=== PATIENT | male | born 1945 | race Caucasian/White ===

== ENCOUNTER 2017-10-12 21:19 | Emergency (ER) | payer MEDICARE, OTHER ==
[2017-10-12] MEDS ORDERED: SODIUM CHLORIDE 0.9% 1,000 ML IV STA (21:29)
[2017-10-12 21:38] VITALS: RESP 16
[2017-10-12 21:52] LABS: Glucose,Whole Blood 255 mg/dL (75-99)
[2017-10-12] MEDS ORDERED: ACETAMINOPHEN IV (For NPO) 1,000 MG in EMPTY BAG 1 BAG IVPB STA (21:53)
[2017-10-12] MEDS ORDERED: KETOROLAC 30 MG/ML 1 ML VIAL IVP STA (21:53)
[2017-10-12 21:56] LABS: Basophils # (A) 0.1 k/uL (0-0.2); Basophils % (A) 1 %; Eosinophils # (A) 2.3 k/uL (0-0.7); Eosinophils % (A) 29 %; HCT 39.2 % (39.0-53.0); HGB 12.6 gm/dL (13.0-17.5); Lymphocytes # (A) 0.8 k/uL (1.0-4.8); Lymphocytes % (A) 10 %; MCH 26.4 pg (25.0-35.0); MCHC 32.2 g/dL (31.0-37.0); MCV 82.1 fL (80.0-100.0); Monocytes # (A) 0.5 k/uL (0-1.0); Monocytes % (A) 6 %; Neutrophils # (A) 4.2 k/uL (1.3-7.7); Neutrophils % (A) 51 %; Platelet Count 194 k/uL (150-450); RBC 4.77 m/uL (4.30-5.90); RDW 15.7 % (11.5-15.5); WBC 8.1 k/uL (3.8-10.6)
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
[2017-10-12 22:08] LABS: ALT 83 U/L (21-72); AST 75 U/L (17-59); Albumin 3.9 g/dL (3.5-5.0); Alkaline Phosphatase 345 U/L (38-126); Anion Gap 8 mmol/L; Blood Urea Nitrogen 17 mg/dL (9-20); Carbon Dioxide 25 mmol/L (22-30); Chloride 102 mmol/L (98-107); Glucose 253 mg/dL (74-99); Magnesium 2.1 mg/dL (1.6-2.3); Phosphorus 2.8 mg/dL (2.5-4.5); Potassium 4.4 mmol/L (3.5-5.1); Sodium 135 mmol/L (137-145); Total Bilirubin 0.6 mg/dL (0.2-1.3); Total Protein 7.1 g/dL (6.3-8.2)
[2017-10-12 22:10] LABS: Creatine Kinase 31 U/L (55-170)
[2017-10-12 22:13] LABS: INR 1.6 (<1.2); Partial Thromboplastin Time 24.8 sec (22.0-30.0); Prothrombin Time 14.4 sec (9.0-12.0)
--- NOTE | 2017-10-12 22:18 | XR ---
EXAMINATION TYPE: XR chest 2V DATE OF EXAM: 10/12/2017 COMPARISON: 01/16/2012 HISTORY: Fatigue TECHNIQUE: Frontal and lateral views of the chest are obtained. FINDINGS: There is no heart failure nor confluent pneumonic infiltrate. Costophrenic angles are cornell r. There are chest leads. There is mild thoracic dextroscoliosis. IMPRESSION: No active cardiopulmonary disease. Normal heart. No change
[2017-10-12 22:23] LABS: Creatine Kinase MB 0.5 ng/mL (0.0-2.4); Troponin I <0.012 ng/mL (0.000-0.034)
[2017-10-12] MEDS ORDERED: diphenhydrAMINE 50 MG/ML 1 ML VIAL IVP STA (22:55)
[2017-10-12] MEDS ORDERED: methylPREDNISolone SOD SUCCI 125 MG/2 ML VIAL IV STA (22:55)
[2017-10-12] MEDS ORDERED: cefTRIAXone 2,000 MG in SODIUM CHLORIDE 0.9% 100 ML IVPB STA (22:55)
[2017-10-12] MEDS ORDERED: FAMOTIDINE 20 MG/2 ML VIAL IV STA (22:55)
[2017-10-12 23:02] VITALS: BP 120/60; PULSE 86; TEMP 99.8
[2017-10-12] MEDS ORDERED: cefTRIAXone IN SWFI 2,000 MG/20 ML SYRINGE IVP ONE (23:45)
== END 2017-10-12 23:41 | disposition left against medical advice (07) ==
LOC: EC 21:19
DX: R53.1 Weakness (principal); R50.9 Fever, unspecified; R21 Rash and other nonspecific skin eruption; Z04.1 Encounter for examination and observation following transport accident; Z87.891 Personal history of nicotine dependence
CPT/HCPCS: 99285; 82075; 36415; 80053; 82550; 82553; 83605; 83735; 84100; 84443; 84484; 85025; 85610; 85730; 71046; J0131

== ENCOUNTER → 2017-10-19 | Outpatient (CLI) | payer OTHER ==
--- NOTE | 2017-10-19 19:35 | NM ---
EXAMINATION TYPE: NM hepatobiliary w CCK DATE OF EXAM: 10/19/2017 COMPARISON: NONE HISTORY: Pain with clinical suspicion for dysfunctional gallbladder TECHNIQUE: After the intravenous administration of 4.83 mCi Tc 99m Mebrofenin hepatobiliary scintigra phy is performed. Immediate images post injection. FINDINGS: There is satisfactory initial accumulation of tracer by the liver. The gallbladder is visu alized within 35 minutes. The small bowel activity is noted within 10 minutes. At one hour CCK was administered, patient was injected with 1.89 mcg of Kinevac, and gallbladder ejec tion fraction is calculated at 69 %, in the normal range. Therefore there is no scintigraphic eviden ce of cystic or common bile duct obstruction to suggest acute cholecystitis or gallbladder dyskinesia . IMPRESSION: 1. Normal hepatobiliary transport and gallbladder ejection fraction. 2. However, reflux of bile into the stomach was noted, particularly prominent from 48 -60 minutes in to the study.
== END | disposition home or self-care (01) ==
LOC: RADNMMAIN 16:50
PROVIDERS: ATTEND Internal Medicine
DX: K82.8 Other specified diseases of gallbladder (principal)
CPT/HCPCS: 78227; A9537; J2805

== ENCOUNTER 2017-11-05 18:26 | Emergency (ER) | payer MEDICARE ==
[2017-11-05] MEDS ORDERED: SODIUM CHLORIDE 0.9% 500 ML 500 ML IV STA (18:33)
[2017-11-05 18:37] LABS: Glucose,Whole Blood 155 mg/dL (75-99)
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
[2017-11-05 18:58] LABS: Anisocytosis Slight; Basophils # (A) 0.1 k/uL (0-0.2); Basophils % (A) 1 %; Eosinophils # (A) 2.6 k/uL (0-0.7); Eosinophils % (A) 21 %; HCT 45.7 % (39.0-53.0); HGB 14.1 gm/dL (13.0-17.5); Hypochromasia Slight; Lymphocytes # (A) 1.7 k/uL (1.0-4.8); Lymphocytes % (A) 14 %; MCH 26.2 pg (25.0-35.0); MCHC 30.8 g/dL (31.0-37.0); MCV 85.1 fL (80.0-100.0); Mean Platelet Volume 6.7; Monocytes # (A) 0.5 k/uL (0-1.0); Monocytes % (A) 4 %; Neutrophils # (A) 7.6 k/uL (1.3-7.7); Neutrophils % (A) 60 %; Platelet Count 305 k/uL (150-450); RBC 5.37 m/uL (4.30-5.90); RDW 17.2 % (11.5-15.5); WBC 12.6 k/uL (3.8-10.6)
--- NOTE | 2017-11-05 18:58 | XR ---
EXAMINATION TYPE: XR pelvis AP view DATE OF EXAM: 11/05/2017 COMPARISON: NONE HISTORY: Trauma. Pain. TECHNIQUE: Single view FINDINGS: The pelvic ring is intact. Proximal femurs and hip joints are intact. IMPRESSION: Negative pelvis exam.
--- NOTE | 2017-11-05 19:05 | XR ---
EXAMINATION TYPE: XR chest 1V portable DATE OF EXAM: 11/05/2017 COMPARISON: 10/12/2017 HISTORY: Altered mental status TECHNIQUE: Single frontal view of the chest is obtained. FINDINGS: Heart is normal. Thoracic aorta is atheromatous. Lungs are clear of consolidation. There a re chest leads. There is some linear density behind the heart in the left lower lobe. IMPRESSION: There is probably some new minimal linear infiltrate and atelectasis in the left lower l obe compared to old exam. No heart failure.
[2017-11-05 19:06] LABS: INR 1.7 (<1.2); Partial Thromboplastin Time 25.7 sec (22.0-30.0); Prothrombin Time 15.5 sec (9.0-12.0)
[2017-11-05] MEDS ORDERED: LORazepam 2 MG/ML INJ IV STA (19:15)
[2017-11-05 19:17] LABS: ALT 44 U/L (21-72); AST 41 U/L (17-59); Albumin 3.3 g/dL (3.5-5.0); Alcohol <10 mg/dL; Alkaline Phosphatase 361 U/L (38-126); Amylase 58 U/L (30-110); Anion Gap 11 mmol/L; Blood Urea Nitrogen 14 mg/dL (9-20); Calcium 8.4 mg/dL (8.4-10.2); Carbon Dioxide 21 mmol/L (22-30); Chloride 103 mmol/L (98-107); Glucose 186 mg/dL (74-99); Lipase 113 U/L (23-300); Potassium 4.5 mmol/L (3.5-5.1); Sodium 135 mmol/L (137-145); Total Bilirubin 0.7 mg/dL (0.2-1.3); Total Protein 8.2 g/dL (6.3-8.2)
--- NOTE | 2017-11-05 19:24 | CT ---
EXAMINATION TYPE: CT brain rafael angulo DATE OF EXAM: 11/05/2017 COMPARISON: 01/12/2012 HISTORY: Fall, altered mental status CT DLP: 1813.6 mGycm Automated exposure control for dose reduction was used. TECHNIQUE: CT scan of the head and cervical spine are performed without contrast. FINDINGS: There is cerebral cortical atrophy. There is no mass effect nor midline shift. There is n o sign of intracranial hemorrhage. The calvarium is intact. There is 8 mm nondisplaced chip fracture of the anterior large hypertrophic osteophyte at the C3 vert ebral body. It is not clear if this fracture is acute. The facet joints appear intact. Skull base is intact. There is degenerative disc space narrowing from C3 to C7 with spurring of the endplates. IMPRESSION: Cerebral atrophy. No acute intracranial abnormality. No change. Chip fracture of the anterior inferior endplate osteophyte at C3 level. This could be an acute fractu re. No evidence of cervical spine instability. Moderate multilevel spondylosis.
[2017-11-05 19:42] LABS: Glucose,Whole Blood 168 mg/dL (75-99)
[2017-11-05 19:44] LABS: Creatine Kinase MB 5.7 ng/mL (0.0-2.4); Troponin I 0.068 ng/mL (0.000-0.034)
[2017-11-05] MEDS ORDERED: SODIUM CHLORIDE 0.9% 500 ML 500 ML IV ONE (19:54)
--- NOTE | 2017-11-05 20:03 | CT ---
EXAMINATION TYPE: CT angio head neck DATE OF EXAM: 11/05/2017 HISTORY: Leaning towards left side COMPARISON: CT DLP: 742 mGycm. Automated Exposure Control for Dose Reduction was Utilized. TECHNIQUE: CTA scan of the neck is performed with IV Contrast, patient injected with 65 mL of Isovue 370, axial images are obtained, coronal and sagittal reformatted images are reviewed. Three-D recons tructed images are created on an independent workstation and reviewed. FINDINGS: There is normal branching pattern of the great vessels on the aortic arch. B left carotid artery has origin from the innominate artery. There is bilateral arterial flow in the vertebral arteries which a ppear fairly symmetric. There is bilateral contrast opacification of the common internal and external carotid arteries. There is no evidence of carotid or vertebral artery aneurysm or dissection. There is normal contrast opacification of the vertebrobasilar artery system. There is arterial flow i n the anterior middle and posterior cerebral arteries. There is suboptimal contrast density in the ar teries. This is probably due to timing. I see no evidence of intracranial aneurysm or neovascularity. There is no mass effect. There is normal contrast opacification of the venous sinuses. IMPRESSION: Negative CT angiogram of the head and neck. No evidence of arterial stenosis.
[2017-11-05] MEDS ORDERED: levETIRAcetam IV 1,000 MG in SALINE 1 100ML.BAG IVPB STA (20:15)
[2017-11-05] MEDS ORDERED: ASPIRIN 325 MG TAB PO STA (20:17)
[2017-11-05] MEDS ORDERED: DEXAMETHASONE SOD PHOSPHATE 10 MG/ML 1 ML VIAL IV STA (20:27)
[2017-11-05] MEDS ORDERED: cefTRIAXone IN SWFI 1,000 MG/10 ML SYRINGE IVP STA (20:27)
[2017-11-05 22:07] VITALS: BP 128/77; PULSE 114; RESP 20; TEMP 98
== END 2017-11-05 21:45 | disposition other institution (70) ==
LOC: EC 18:26
DX: I63.9 Cerebral infarction, unspecified (principal); S12.201A Unspecified nondisplaced fracture of third cervical vertebra, initial encounter for closed fracture; R79.89 Other specified abnormal findings of blood chemistry; G81.94 Hemiplegia, unspecified affecting left nondominant side; R56.9 Unspecified convulsions; J98.11 Atelectasis; E11.9 Type 2 diabetes mellitus without complications; Z79.82 Long term (current) use of aspirin; Z79.02 Long term (current) use of antithrombotics/antiplatelets; Z79.4 Long term (current) use of insulin; Z79.51 Long term (current) use of inhaled steroids; Z79.899 Other long term (current) drug therapy; Z87.891 Personal history of nicotine dependence; W17.89XA Other fall from one level to another, initial encounter
CPT/HCPCS: 99285 ×2; 96374 ×2; 96375 ×4; 96361 ×2; 36415; 86900; 86901; 80053; 82150; 82550; 82553; 83605; 83690; 84484; 85025; 85610; 85730; 86850; 72170; 71045; 72125; 70496; 70450; 70498; G0480; J2060; J1100; J0696; J1953; Q9967; 80320